=== PATIENT | male | born 1965 | race Caucasian/White ===

== ENCOUNTER 2017-05-24 13:49 | Emergency (ER) | payer OTHER, MEDICARE, BC ==
[2017-05-24 14:16] VITALS: BP 137/84
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
== END 2017-05-24 16:08 | disposition home or self-care (01) ==
LOC: MW.ED 13:49
DX: R51 Headache (principal); Z98.49 Cataract extraction status, unspecified eye; V43.92XA Unspecified car occupant injured in collision with other type car in traffic accident, initial encounter
CPT/HCPCS: 70450; 70450-26; 99283; 99283-25

== ENCOUNTER 2018-12-07 17:08 | Emergency (ER) | payer MEDICARE, BC ==
[2018-12-07] MEDS ORDERED: Sodium Chloride 0.9% 10 ML Syringe FLUSH PRN (17:22)
[2018-12-07] MEDS ORDERED: Sodium Chloride 0.9% 2.5 ML Syringe FLUSH PRN (17:22)
[2018-12-07] MEDS ORDERED: Sodium Chloride 0.9% 1,000 ML IV ONE (17:23)
[2018-12-07] MEDS ORDERED: Ondansetron 4 MG/2 ML SDV IVPUSH ONE (17:23)
[2018-12-07] MEDS ORDERED: Ketorolac 30 MG/ML SDV IVPUSH ONE (17:31)
[2018-12-07 17:55] LABS: CHLORIDE,CL 107 mmol/L (98-107); SODIUM,NA 143 mmol/L (136-148)
--- NOTE | 2018-12-07 17:55 | EDM.PDOC ---
ED HPI GENERAL MEDICAL PROBLEM - General Chief Complaint: Abdominal Pain Stated Complaint: BACK PAIN Time Seen by Provider: 12/07/18 17:27 Source of Information: Reports: Patient History Limitations: Reports: No Limitations - History of Present Illness INITIAL COMMENTS - FREE TEXT/NARRATIVE: History of present illness: []Patient complains of pain of the right lower quadrant of his abdomen with dizziness and nausea. He denies any vomiting, fevers, chills, headache, fevers or chills, diarrhea or bloody stools Review of systems: As per history of present illness and below otherwise all systems reviewed and negative. Past medical history: As per history of present illness and as reviewed below otherwise noncontributory. Surgical history: As per history of present illness and as reviewed below otherwise noncontributory. Social history: No reported history of drug or alcohol abuse. Family history: As per history of present illness and as reviewed below otherwise noncontributory. Physical exam: General: Well developed, well nourished in NAD HEENT: Atraumatic, normocephalic, pupils reactive, negative for conjunctival pallor or scleral icterus, mucous membranes moist, throat clear, neck supple, nontender, trachea midline. Lungs: Clear to auscultation, breath sounds equal bilaterally, chest nontender. Heart: S1S2, regular, negative for clicks, rubs, or JVD. Abdomen: NABS, Soft, nondistended, tender right lower quadrant without rebound or guarding. Negative for masses or hepatosplenomegaly. Negative for costovertebral tenderness. Pelvis: Stable nontender. Genitourinary: Deferred. Rectal: Deferred. Extremities: Atraumatic, negative for cords or calf pain. Neurovascular unremarkable. Neuro: Awake, alert, oriented. Cranial nerves II through XII unremarkable. Cerebellum unremarkable. Motor and sensory unremarkable throughout. Exam nonfocal. Skin:warm and dry Diagnostics: CBC, chemistry, UA, CT abdomen and pelvis Therapeutics: IV hydration, Zofran and Toradol ED Course: Improved Impression: Abdominal pain Prescriptions: None Plan: Return to ER if symptoms worsen or change. Definitive disposition and diagnosis as appropriate pending reevaluation and review of above. Right Abdomen Pain Score (Numeric/FACES): 4 - Related Data Allergies Allergy/AdvReac Type Severity Reaction Status Date / Time No Known Allergies Allergy Verified 12/07/18 17:26 Home Meds: Home Meds . [No Known Home Meds] 12/07/18 [History] Past Medical History - Past Health History Medical/Surgical History: Denies Medical/Surgical History HEENT History: Reports: Hard of Hearing Other HEENT History: Bilateral HEaring Aides. Eye surgery in past for retina detachment. Other Gastrointestinal History: Celiac Disease history. Constipation history. Genitourinary History: Reports: UTI, Recurrent Musculoskeletal History: Reports: Fracture Psychiatric History: Reports: Anxiety, Panic Attack Other Psychiatric History: "nervous breakdown" - Infectious Disease History Infectious Disease History: Reports: Chicken Pox, Measles, Mumps - Past Surgical History HEENT Surgical History: Reports: Cataract Surgery Social & Family History - Family History Family Medical History: Noncontributory - Tobacco Use Smoking Status *Q: Never Smoker - Caffeine Use Caffeine Use: Reports: Soda Caffeine Use Comment: "sometimes" - Recreational Drug Use Recreational Drug Use: No ED ROS GENERAL - Review of Systems Review Of Systems: ROS reveals no pertinent complaints other than HPI. ED EXAM, GI/ABD - Physical Exam Exam: See Below (The history of present illness) Course - Vital Signs Last Recorded V/S: Last Vital Signs Temp 95.7 F 12/07/18 17:21 Pulse 86 12/07/18 19:30 Resp 20 12/07/18 17:21 BP 146/75 H 12/07/18 19:30 Pulse Ox 97 12/07/18 19:30 - Orders/Labs/Meds Orders: Active Orders 24 hr Category Date Time Status EKG Documentation Completion [RC] STAT Care 12/07/18 17:22 Active Saline Lock Insert [OM.PC] Stat Oth 12/07/18 17:22 Ordered Labs: Laboratory Tests 12/07/18 12/07/18 12/07/18 Range/Units 17:21 17:21 17:25 WBC 6.15 (4.0-11.0) K/uL RBC 4.61 (4.50-5.90) M/uL Hgb 14.2 (13.0-17.0) g/dL Hct 39.8 (38.0-50.0) % MCV 86.3 (80.0-98.0) fL MCH 30.8 (27.0-32.0) pg MCHC 35.7 (31.0-37.0) g/dL RDW Std Deviation 43.8 (28.0-62.0) fl RDW Coeff of Ruiz 14 (11.0-15.0) % Plt Count 282 (150-400) K/uL MPV 8.60 (7.40-12.00) fL Neut % (Auto) 61.3 (48.0-80.0) % Lymph % (Auto) 23.9 (16.0-40.0) % Reagan % (Auto) 11.9 (0.0-15.0) % Eos % (Auto) 2.4 (0.0-7.0) % Baso % (Auto) 0.5 (0.0-1.5) % Neut # (Auto) 3.8 (1.4-5.7) K/uL Lymph # (Auto) 1.5 (0.6-2.4) K/uL Reagan # (Auto) 0.7 (0.0-0.8) K/uL Eos # (Auto) 0.2 (0.0-0.7) K/uL Baso # (Auto) 0.0 (0.0-0.1) K/uL Nucleated RBC % 0.0 /100WBC Nucleated RBCs # 0 K/uL Sodium 143 (136-148) mmol/L Potassium 3.8 (3.5-5.1) mmol/L Chloride 107 (98-107) mmol/L Carbon Dioxide 22.3 (21.0-32.0) mmol/L BUN 11 (7.0-18.0) mg/dL Creatinine 1.0 (0.8-1.3) mg/dL Est Cr Clr Drug Dosing 76.68 mL/min Estimated GFR (MDRD) > 60.0 ml/min Glucose 144 H (74-106) mg/dL Calcium 8.7 (8.5-10.1) mg/dL Total Bilirubin 0.2 (0.2-1.0) mg/dL AST 24 (15-37) IU/L ALT 48 (14-63) IU/L Alkaline Phosphatase 104 (46-116) U/L Total Protein 7.3 (6.4-8.2) g/dL Albumin 3.9 (3.4-5.0) g/dL Globulin 3.4 (2.6-4.0) g/dL Albumin/Globulin Ratio 1.1 (0.9-1.6) Lipase 59 L (73-393) U/L Urine Color YELLOW Urine Appearance CLEAR Urine pH 6.0 (5.0-8.0) Ur Specific [place] 1.010 (1.001-1.035) Urine Protein NEGATIVE (NEGATIVE) mg/dL Urine Glucose (UA) NEGATIVE (NEGATIVE) mg/dL Urine Ketones NEGATIVE (NEGATIVE) mg/dL Urine Occult Blood NEGATIVE (NEGATIVE) Urine Nitrite NEGATIVE (NEGATIVE) Urine Bilirubin NEGATIVE (NEGATIVE) Urine Urobilinogen 0.2 (<2.0) EU/dL Ur Leukocyte Esterase NEGATIVE (NEGATIVE) Urine RBC 0-1 (0-2/HPF) Urine WBC 0-1 (0-5/HPF) Ur Epithelial Cells RARE (NONE-FEW) Urine Bacteria RARE (NEGATIVE) Meds: Medications Discontinued Medications Generic Name Dose Route Start Last Admin Trade Name Freq PRN Reason Stop Dose Admin Sodium Chloride 1,000 mls @ 999 mls/hr 12/07/18 17:23 12/07/18 17:30 Normal Saline IV 12/07/18 18:23 999 mls/hr .Bolus ONE Administration Iopamidol 85 ml 12/07/18 18:44 12/07/18 18:45 Isovue Multipack-370 (76%) IVPUSH 12/07/18 18:45 85 ml ONETIME STA Administration Ketorolac Tromethamine 30 mg 12/07/18 17:31 12/07/18 17:37 Toradol IVPUSH 12/07/18 17:32 30 mg ONETIME ONE Administration Ondansetron HCl 4 mg 12/07/18 17:23 12/07/18 17:30 Zofran IVPUSH 12/07/18 17:24 4 mg ONETIME ONE Administration Sodium Chloride 10 ml 12/07/18 17:22 12/07/18 17:30 Saline Flush FLUSH 10 ml ASDIRECTED PRN Administration Keep Vein Open Sodium Chloride 2.5 ml 12/07/18 17:22 12/07/18 17:30 Saline Flush FLUSH 2.5 ml ASDIRECTED PRN Administration Keep Vein Open Departure - Departure Time of Disposition: 19:21 Disposition: Home, Self-Care 01 Condition: Good Clinical Impression: Abdominal pain Qualifiers: Abdominal location: right lower quadrant Qualified Code(s): R10.31 - Right lower quadrant pain - Discharge Information *PRESCRIPTION DRUG MONITORING PROGRAM REVIEWED*: No *COPY OF PRESCRIPTION DRUG MONITORING REPORT IN PATIENT SAGAR: No Instructions: Abdominal Pain, Adult Referrals: PCP,Unknown [Primary Care Provider] - Forms: ED Department Discharge Additional Instructions: The following information is given to patients seen in the emergency department who are being discharged to home. This information is to outline your options for follow-up care. We provide all patients seen in our emergency department with a follow-up referral. The need for follow-up, as well as the timing and circumstances, are variable depending upon the specifics of your emergency department visit. If you don't have a primary care physician on staff, we will provide you with a referral. We always advise you to contact your personal physician following an emergency department visit to inform them of the circumstance of the visit and for follow-up with them and/or the need for any referrals to a consulting specialist. The emergency department will also refer you to a specialist when appropriate. This referral assures that you have the opportunity for follow-up care with a specialist. All of these measure are taken in an effort to provide you with optimal care, which includes your follow-up. Under all circumstances we always encourage you to contact your private physician who remains a resource for coordinating your care. When calling for follow-up care, please make the office aware that this follow-up is from your recent emergency room visit. If for any reason you are refused follow-up, please contact the [facility] Emergency Department at and asked to speak to the emergency department charge nurse. Return to ER if symptoms worsen or change, follow with primary care if needed, [facility] [address] [place] [id number] - My Orders Last 24 Hours: My Active Orders 12/07/18 17:22 EKG Documentation Completion [RC] STAT Saline Lock Insert [OM.PC] Stat - Assessment/Plan Last 24 Hours: My Active Orders 12/07/18 17:22 EKG Documentation Completion [RC] STAT Saline Lock Insert [OM.PC] Stat
[2018-12-07] MEDS ORDERED: Iopamidol 755 MG/ML 500 ML Multipack Bottle IVPUSH STA (18:44)
--- NOTE | 2018-12-07 19:18 | CT ---
INDICATION: Right lower quadrant pain for the past month. Nausea. COMPARISON: Previous CT of the abdomen and pelvis without contrast from 07/07/2015 TECHNIQUE: CT examination of the abdomen and pelvis was performed with the uneventful intravenous administration of 85 cc of Isovue 370 while 3 mm thick axial sections were obtained from the lung bases through the pubic symphysis. Oral contrast was not administered. Please note that all CT scans at this facility use dose modulation, iterative reconstruction, and/or weight-based dosing when appropriate to reduce radiation dose to as low as reasonably achievable. FINDINGS: In the abdomen, the liver, spleen, and adrenals are normal in appearance. The pancreas is again seen to be very atrophic. There is an 8 millimeter cyst in the upper pole of the right kidney, faintly seen on the previous study and probably unchanged. The previously seen tiny calculus in the lower pole of the right kidney has increased in size and now measures 3 millimeters in length. There is no sign of any additional abnormality of the kidneys. There is no sign of left renal calculus or mass. There is no sign of hydronephrosis, hydroureter, or ureterolithiasis. The gallbladder is normal in appearance. The abdominal aorta is normal in caliber with no sign of dilatation. There is no sign of retroperitoneal mass or adenopathy. The stomach, loops of small bowel, and colon in the abdomen are normal in appearance. In the pelvis, the appendix is normal in appearance with no sign of inflammatory process. The loops of small bowel and colon in the pelvis are normal in appearance. The prostate remains normal in appearance. The urinary bladder is normal in appearance. There is no sign of pelvic or inguinal mass or adenopathy. The lung bases are clear. The osseous structures are normal in appearance for the patient`s age. IMPRESSION: Nothing seen to explain the patient`s right lower quadrant pain. Normal appearance of the appendix. Normal appearance of the right ureter and right renal collecting system with no sign of hydronephrosis. CT of the abdomen shows an increase in size of the small nonobstructive calculus in the lower pole of the right kidney, now measuring 3 millimeters in diameter. No sign of any renal calculus on the left. Normal CT of the pelvis with contrast. Please note that all CT scans at this facility use dose modulation, iterative reconstruction, and/or weight-based dosing when appropriate to reduce radiation dose to as low as reasonably achievable. Dictated by Jesus Mullins MD @ Dec 07 2018 7:08PM Signed by Dr. Jesus Mullins @ Dec 07 2018 7:17PM
[2018-12-07 19:30] VITALS: BP 146/75
== END 2018-12-07 19:31 | disposition home or self-care (01) ==
LOC: MW.ED 17:08
DX: R10.31 Right lower quadrant pain (principal); R11.0 Nausea; Z98.49 Cataract extraction status, unspecified eye
CPT/HCPCS: 36415; 74177; 80053; 81001; 83690; 85025; 93005; 96361; 96374; 96375; 99284; J1885; J2405; J7040; Q9967

== ENCOUNTER 2019-11-05 13:59 | Emergency (ER) | payer MEDICARE, BC ==
--- NOTE | 2019-11-05 14:25 | EDM.PDOC ---
ED HPI GENERAL MEDICAL PROBLEM - General Chief Complaint: Genitourinary Problem Stated Complaint: BLADDER INFECTION Time Seen by Provider: 11/05/19 14:21 Source of Information: Reports: Patient History Limitations: Reports: No Limitations - History of Present Illness INITIAL COMMENTS - FREE TEXT/NARRATIVE: HISTORY AND PHYSICAL: History of present illness: Patient is a 54-year-old male who presents to the emergency room with complaints of right lower quadrant pain that radiates into his back. He does complain of some dysuria which he describes as difficulty fully emptying his bladder and some burning with urination. Patient denies any fever, chills, headache, change in vision, syncope or near syncope. Denies any chest pain, back pain, shortness of breath or cough. Denies any nausea, vomiting, diarrhea, constipation. Has not noted any blood in urine or stool. Patient has been eating and drinking appropriately. Review of systems: As per history of present illness and below otherwise all systems reviewed and negative. Past medical history: As per history of present illness and as reviewed below otherwise noncontributory. Surgical history: As per history of present illness and as reviewed below otherwise noncontributory. Social history: See social history for further information Family history: As per history of present illness and as reviewed below otherwise noncontributory. Physical exam: General: Well-developed and well-nourished 54-year-old male. Alert and oriented. Nontoxic-appearing and in no acute distress. HEENT: Atraumatic, normocephalic, pupils equal and reactive bilaterally, negative for conjunctival pallor or scleral icterus, mucous membranes moist, TMs normal bilaterally, throat clear, neck supple, nontender, trachea midline. No drooling or trismus noted. No meningeal signs. No hot potato voice noted. Lungs: Clear to auscultation, breath sounds equal bilaterally, chest nontender. Heart: S1S2, regular rate and rhythm without overt murmur Abdomen: Soft, nondistended, diffuse right lower quadrant tenderness. Negative for masses or hepatosplenomegaly. Negative for costovertebral tenderness. Pelvis: Stable nontender. Skin: Intact, warm, dry. No lesions or rashes noted. Extremities: Atraumatic, moves all extremities per self without difficulty or deficits, negative for cords or calf pain. Neurovascular unremarkable. Neuro: Awake, alert, oriented. Cranial nerves II through XII unremarkable. Cerebellum unremarkable. Motor and sensory unremarkable throughout. Exam nonfocal. Notes: Serum lab work is unremarkable. Patient does have a UTI, culture added. 3.6mm vacation located in the distal right ureter proximal to the UVJ about 5 cm. There is no significant urethral dilatation is seen in either representing a nonobstructing or partially obstructing stone. Dr Rangel, urology emergency response officer, was consulted on this case. He states that the patient can follow-up with him on Thursday. All this information was shared and thoroughly explained with the patient. Supportive care measures were reviewed and discussed. Voices understanding and is agreeable to plan of care. Denies any further questions or concerns at this time. Diagnostics: CBC, CMP, UA, CT abd/pelvis Therapeutics: IV fluids, Toradol, Rocephin, Flomax Prescription: Flomax, Cipro Impression: UTI Kidney Stone, right Plan: 1. Increase your oral fluids. Take the medications as we discussed. 2. Tylenol and or ibuprofen as needed for pain. 3. Please follow up with Dr. Morrison, the urologist next. Return to the ED as needed as discussed. Definitive disposition and diagnosis as appropriate pending reevaluation and review of above. RLQ Pain Score (Numeric/FACES): 7 - Related Data Allergies Allergy/AdvReac Type Severity Reaction Status Date / Time No Known Allergies Allergy Verified 12/07/18 17:26 Home Meds: Home Meds Ciprofloxacin [Ciprofloxacin HCl] 500 mg PO BID 7 Days #14 tab 11/05/19 [Rx] Tamsulosin HCl [Flomax] 0.4 mg PO DAILY 7 Days #7 cap.er.24h 11/05/19 [Rx] Past Medical History - Past Health History Medical/Surgical History: Denies Medical/Surgical History HEENT History: Reports: Hard of Hearing Other HEENT History: Bilateral HEaring Aides. Eye surgery in past for retina detachment. Other Gastrointestinal History: Celiac Disease history. Constipation history. Genitourinary History: Reports: UTI, Recurrent Musculoskeletal History: Reports: Fracture Psychiatric History: Reports: Anxiety, Panic Attack Other Psychiatric History: "nervous breakdown" - Infectious Disease History Infectious Disease History: Reports: Chicken Pox, Measles, Mumps - Past Surgical History HEENT Surgical History: Reports: Cataract Surgery Social & Family History - Family History Family Medical History: Noncontributory - Caffeine Use Caffeine Use: Reports: Soda Caffeine Use Comment: "sometimes" ED ROS GENERAL - Review of Systems Review Of Systems: Comprehensive ROS is negative, except as noted in HPI. ED EXAM, RENAL/ - Physical Exam Exam: See Below (See dictation) Course - Vital Signs Last Recorded V/S: Last Vital Signs Temp 97 F 11/05/19 14:36 Pulse 87 11/05/19 16:04 Resp 18 11/05/19 16:04 BP 167/96 H 11/05/19 16:04 Pulse Ox 98 11/05/19 16:04 - Orders/Labs/Meds Orders: Active Orders 24 hr Category Date Time Status CULTURE URINE [RM] Stat Lab 11/05/19 14:40 Received Labs: Laboratory Tests 11/05/19 11/05/19 11/05/19 Range/Units 14:40 15:16 15:16 WBC 5.55 (4.0-11.0) K/uL RBC 4.70 (4.50-5.90) M/uL Hgb 14.3 (13.0-17.0) g/dL Hct 41.3 (38.0-50.0) % MCV 87.9 (80.0-98.0) fL MCH 30.4 (27.0-32.0) pg MCHC 34.6 (31.0-37.0) g/dL RDW Std Deviation 43.6 (28.0-62.0) fl RDW Coeff of Ruiz 14 (11.0-15.0) % Plt Count 287 (150-400) K/uL MPV 8.70 (7.40-12.00) fL Neut % (Auto) 58.9 (48.0-80.0) % Lymph % (Auto) 25.9 (16.0-40.0) % Humphreys % (Auto) 12.4 (0.0-15.0) % Eos % (Auto) 2.3 (0.0-7.0) % Baso % (Auto) 0.5 (0.0-1.5) % Neut # (Auto) 3.3 (1.4-5.7) K/uL Lymph # (Auto) 1.4 (0.6-2.4) K/uL Humphreys # (Auto) 0.7 (0.0-0.8) K/uL Eos # (Auto) 0.1 (0.0-0.7) K/uL Baso # (Auto) 0.0 (0.0-0.1) K/uL Nucleated RBC % 0.0 /100WBC Nucleated RBCs # 0 K/uL Sodium 139 (136-148) mmol/L Potassium 4.1 (3.5-5.1) mmol/L Chloride 103 (98-107) mmol/L Carbon Dioxide 26.0 (21.0-32.0) mmol/L BUN 11 (7.0-18.0) mg/dL Creatinine 0.8 (0.8-1.3) mg/dL Est Cr Clr Drug Dosing 93.04 mL/min Estimated GFR (MDRD) > 60.0 ml/min Glucose 122 H (74-106) mg/dL Calcium 8.9 (8.5-10.1) mg/dL Total Bilirubin 0.2 (0.2-1.0) mg/dL AST 21 (15-37) IU/L ALT 35 (14-63) IU/L Alkaline Phosphatase 104 (46-116) U/L Total Protein 7.4 (6.4-8.2) g/dL Albumin 4.0 (3.4-5.0) g/dL Globulin 3.4 (2.6-4.0) g/dL Albumin/Globulin Ratio 1.2 (0.9-1.6) Urine Color YELLOW Urine Appearance SLT CLOUDY Urine pH 6.0 (5.0-8.0) Ur Specific Lenore 1.025 (1.001-1.035) Urine Protein NEGATIVE (NEGATIVE) mg/dL Urine Glucose (UA) NEGATIVE (NEGATIVE) mg/dL Urine Ketones NEGATIVE (NEGATIVE) mg/dL Urine Occult Blood NEGATIVE (NEGATIVE) Urine Nitrite NEGATIVE (NEGATIVE) Urine Bilirubin NEGATIVE (NEGATIVE) Urine Urobilinogen 0.2 (<2.0) EU/dL Ur Leukocyte Esterase MODERATE H (NEGATIVE) Urine RBC 2-6 (0-2/HPF) Urine WBC 30-50 (0-5/HPF) Ur Epithelial Cells FEW (NONE-FEW) Urine Bacteria 2+ H (NEGATIVE) Meds: Medications Discontinued Medications Generic Name Dose Route Start Last Admin Trade Name Freq PRN Reason Stop Dose Admin Sodium Chloride 1,000 mls @ 999 mls/hr 11/05/19 14:46 11/05/19 15:19 Normal Saline IV 11/05/19 15:46 999 mls/hr STAT ONE Administration Ceftriaxone Sodium/Dextrose 1 50 mls @ 100 mls/hr 11/05/19 15:21 11/05/19 16: 03 gm/ Premix IV 11/05/19 15:50 100 mls/hr ONETIME ONE Administration Ketorolac Tromethamine 30 mg 11/05/19 14:46 11/05/19 15:20 Toradol IVPUSH 11/05/19 14:47 30 mg ONETIME ONE Administration Tamsulosin HCl 0.4 mg 11/05/19 16:55 Flomax PO 11/05/19 16:56 ONETIME ONE Departure - Departure Time of Disposition: 17:03 Disposition: Home, Self-Care 01 Clinical Impression: UTI, Urinary tract infectious disease, Kidney stone - Discharge Information Prescriptions: Ciprofloxacin [Ciprofloxacin HCl] 500 mg PO BID 7 Days #14 tab Tamsulosin HCl [Flomax] 0.4 mg PO DAILY 7 Days #7 cap.er.24h Instructions: Kidney Stones, Pvkm-to-Uadw, Urinary Tract Infection, Adult, Easy -to-Read Referrals: PCP,None [Primary Care Provider] - Forms: ED Department Discharge Additional Instructions: The following information is given to patients seen in the emergency department who are being discharged to home. This information is to outline your options for follow-up care. We provide all patients seen in our emergency department with a follow-up referral. The need for follow-up, as well as the timing and circumstances, are variable depending upon the specifics of your emergency department visit. If you don't have a primary care physician on staff, we will provide you with a referral. We always advise you to contact your personal physician following an emergency department visit to inform them of the circumstance of the visit and for follow-up with them and/or the need for any referrals to a consulting specialist. The emergency department will also refer you to a specialist when appropriate. This referral assures that you have the opportunity for follow-up care with a specialist. All of these measure are taken in an effort to provide you with optimal care, which includes your follow-up. Under all circumstances we always encourage you to contact your private physician who remains a resource for coordinating your care. When calling for follow-up care, please make the office aware that this follow-up is from your recent emergency room visit. If for any reason you are refused follow-up, please contact the [facility] Emergency Department at and asked to speak to the emergency department charge nurse. [facility] - Urology [address] [place] [id number] 1. Increase your oral fluids. Take the medications as we discussed. 2. Tylenol and or ibuprofen as needed for pain. 3. Please follow up with Dr. Morrison, the urologist next. Return to the ED as needed as discussed. Sepsis Event Note - Focused Exam Vital Signs: Vital Signs Temp Pulse Resp BP Pulse Ox 11/05/19 16:04 87 18 167/96 H 98 11/05/19 14:36 97 F 98 16 118/87 96 Date Exam was Performed: 11/05/19 Time Exam was Performed: 17:11 - My Orders Last 24 Hours: My Active Orders 11/05/19 14:40 CULTURE URINE [RM] Stat - Assessment/Plan Last 24 Hours: My Active Orders 11/05/19 14:40 CULTURE URINE [RM] Stat
[2019-11-05] MEDS ORDERED: Ketorolac 30 MG/ML SDV IVPUSH ONE (14:46)
[2019-11-05] MEDS ORDERED: Sodium Chloride 0.9% 1,000 ML IV ONE (14:46)
[2019-11-05] MEDS ORDERED: cefTRIAXone 1 GM in Premix Bag 1 BAG IV ONE (15:21)
[2019-11-05 15:41] LABS: BLOOD UREA NITROGEN,BUN 11 mg/dL (7.0-18.0); CHLORIDE,CL 103 mmol/L (98-107); GLUCOSE RANDOM 122 mg/dL (74-106); POTASSIUM,K 4.1 mmol/L (3.5-5.1); SODIUM,NA 139 mmol/L (136-148)
[2019-11-05 16:05] VITALS: PULSE 87
--- NOTE | 2019-11-05 16:50 | CT ---
CT abdomen and pelvis Technique: Multiple axial sections were obtained from above the dome of the diaphragm inferiorly through the pubic symphysis. Intravenous and oral contrast not utilized. Study has been performed as a ureteral stone protocol. Comparison: Prior CT abdomen and pelvis study of 12/07/18. Findings: Very small calcification within the lower left kidney is seen compatible with small nonobstructing stone. No other abnormal calcifications are seen within the kidneys. Calcification is noted within the lower right pelvis which appears to be within the right ureter measuring about 3.6 mm in size. No significant dilatation of the collecting system is seen i and n this is felt to represent partially or nonobstructing stone. No other abnormal calcifications are seen. Visualized lung bases show nothing acute. Noncontrast appearance of the liver shows no focal parenchymal abnormality. Spleen appears within normal limits. Adrenal glands show no nodule. Pancreas shows atrophy. No focal abnormality appreciated within the pancreas. Gallbladder contains no calcified gallstones. Aorta shows atherosclerotic calcification without aneurysm. No retroperitoneal adenopathy or mesenteric abnormalities are seen. No pelvic mass or adenopathy is seen. Calcifications are noted within the prostate gland. Appendix is seen which is normal in size. Bone window settings were reviewed which appear within normal limits for the patient's age. Impression: 1. 3.6 mm calcification believed to be located within the distal right ureter proximal to the UVJ by about 5 cm. No significant ureteral dilatation is seen in this either represents nonobstructing or partially obstructing stone. 2. Very small calcification compatible with nonobstructing stone within the lower left kidney. 3. No additional acute abnormality is appreciated on noncontrast CT study of the abdomen and pelvis. Diagnostic code #3 This report was dictated in [place] Standard Time
[2019-11-05] MEDS ORDERED: Tamsulosin 0.4 MG Cap.ER PO ONE (16:55)
[2019-11-05 17:22] VITALS: BP 151/93
== END 2019-11-05 17:22 | disposition home or self-care (01) ==
LOC: MW.ED 13:59
DX: N39.0 Urinary tract infection, site not specified (principal); N20.2 Calculus of kidney with calculus of ureter; Z79.899 Other long term (current) drug therapy
CPT/HCPCS: 36415; 74176; 80053; 81001; 85025; 87086; 87088; 87186; 96361; 96365; 96375; 99284; A9270; J0696; J1885; J7030

== ENCOUNTER 2019-12-02 17:23 | Observation (INO) | payer MEDICARE, BC ==
[2019-12-02] MEDS ORDERED: fentaNYL 50 MCG/ML SDV IVPUSH ONE (17:30)
[2019-12-02] MEDS ORDERED: Iopamidol 755 MG/ML 500 ML Multipack Bottle IVPUSH STA (17:53)
--- NOTE | 2019-12-02 18:00 | CT ---
CT cervical spine Technique: Multiple axial sections were obtained from above C1 inferiorly to the bottom of T2. Reconstructed sagittal and coronal images were reviewed. Findings: Vertebral body heights and disc spaces are fairly well-preserved. No bony central or bony neural foraminal stenosis is seen. No fracture is appreciated within the cervical spine. No abnormal subluxation is appreciated. Impression: 1. Nothing acute is appreciated on CT study of the cervical spine. Diagnostic code #1 This report was dictated in [place] Standard Time
--- NOTE | 2019-12-02 18:03 | CT ---
Head CT Technique: Multiple axial sections through the brain were obtained. Intravenous contrast was not utilized. Comparison: Prior CT cervical spine study of 05/24/17. Findings: Ventricles along with basal cisterns and sulci over the convexities are mildly prominent. Symmetric low density areas are noted within the globus pallidus on both sides which is stable. Mild areas of diminished density are noted within the periventricular and subcortical white matter. These findings are also stable from prior exam presumably due to nonspecific small vessel white matter change. No acute abnormal parenchymal density is seen. No evidence of intracranial hemorrhage. No midline shift or mass-effect is seen. Bone window settings were reviewed which shows no acute calvarial abnormality. Mastoid sinuses show nothing acute. Paranasal sinuses show nothing acute. Impression: 1. Stable findings as described above. 2. No acute intracranial abnormality is identified. Diagnostic code #2 This report was dictated in [place] Standard Time
--- NOTE | 2019-12-02 18:03 | CR ---
Chest: Portable view of the chest was obtained. Comparison: No prior chest imaging. Findings: Heart size and mediastinum are normal. Lungs are clear with no acute parenchymal change. Slightly displaced fractures are noted within the 7th and 8th right ribs. Other bony structures are grossly intact. Impression: 1. 2 slightly displaced right lower rib fractures. 2. Nothing acute is otherwise seen on portable chest x-ray. Diagnostic code #3 This report was dictated in [place] Standard Time
[2019-12-02 18:10] LABS: BLOOD UREA NITROGEN,BUN 15 mg/dL (7.0-18.0); CARBON DIOXIDE,CO2 23.2 mmol/L (21.0-32.0); CHLORIDE,CL 103 mmol/L (98-107); GLUCOSE RANDOM 211 mg/dL (74-106); POTASSIUM,K 4.8 mmol/L (3.5-5.1); SODIUM,NA 142 mmol/L (136-148)
--- NOTE | 2019-12-02 18:13 | CT ---
CT thoracic spine Technique: Multiple axial sections through the thoracic spine were obtained. Reconstructed coronal and sagittal images were reviewed. Findings: Fracture is seen within the posterior right 8th rib. Mild scattered endplate osteophytes are seen within the thoracic spine. Vertebral body heights and disc spaces within the thoracic spine are maintained. No vertebral body fracture or posterior fracture is appreciated. No bony central or bony neural foraminal stenosis. Impression: 1. Slight endplate spurring. 2. Fracture within the right posterior 8th rib. 3. Nothing acute is seen within the thoracic spine. Diagnostic code #3 This report was dictated in [place] Standard Time
--- NOTE | 2019-12-02 18:17 | CT ---
CT abdomen and pelvis Technique: Multiple axial sections were obtained from above the dome of the diaphragm inferiorly through the pubic symphysis. Intravenous contrast was utilized. No oral contrast has been given. Findings: Liver contains no focal abnormality. Spleen appears within normal limits. Adrenal glands show no nodule. Small cortical lesions are seen within both kidneys most likely representing minimal cysts. Pancreas is within normal limits. Aorta shows no aneurysm. No retroperitoneal adenopathy is seen. Appendix is seen and appears to be normal in size. No pelvic mass or adenopathy is seen. Several small bladder diverticulum are seen. Prostate calcifications are noted. Prostate gland is mildly enlarged. No free fluid or inflammatory change is seen. Several slightly prominent small bowel loops are seen within the upper abdomen showing possible bowel wall thickening. Difficult to exclude pre-existing enteritis versus bowel wall edema/hemorrhage from trauma. Bone window settings were reviewed which shows no discrete fracture within the visualized lumbar spine. No discrete pelvic fracture or hip fracture is seen. Impression: 1. Bowel wall thickening with slightly prominent small bowel within the upper abdomen. Findings may represent pre-existing enteritis or represent bowel injury from recent trauma. 2. No free fluid is seen. 3. Other nonacute findings as noted above.. Diagnostic code #3 This report was dictated in [place] Standard Time
--- NOTE | 2019-12-02 18:23 | CT ---
CT chest Technique: Multiple axial sections were obtained from above the lung apices inferiorly through the lung bases. Intravenous contrast was utilized. Comparison: No prior chest CT. Findings: Aorta shows no aneurysm. Atherosclerotic calcification is seen. No pericardial thickening is seen. No mediastinal adenopathy is seen. No axillary adenopathy is seen. Lungs show mild dependent atelectasis posteriorly within both lungs. Lungs otherwise show no acute parenchymal change. No discrete pulmonary contusion is seen. No pleural effusions or pneumothorax is seen. Fractures are noted within the posterior 9th and 10th ribs. This was incorrectly thought to be the 8th rib on CT thoracic spine and the 7th and 8th ribs on chest x-ray. No additional rib fracture is seen. Impression: 1. Fractures within the posterior 9th and 10th ribs. Please note that these rib fractures were incorrectly labeled as regarding level on previous chest x-ray and thoracic spine CT. 2. Mild dependent atelectasis. 3. No other acute finding is seen on CT study of the chest. Diagnostic code #3 This report was dictated in [place] Standard Time
--- NOTE | 2019-12-02 18:26 | CT ---
CT lumbar spine Technique: Multiple axial sections through the lumbar spine were obtained. Reconstructed coronal and sagittal images were obtained. Comparison: No prior lumbar spine imaging. Findings: Vertebral body heights and disc spaces are maintained. Fractures are seen within lateral 7th and 8th right ribs. This is in addition to the fractures seen on chest CT within the posterior 9th and 10th right ribs. No fracture is seen within the lumbar spine. Mild degenerative apophyseal change is seen. No abnormal subluxation is seen. No traumatic disc herniation is seen. Impression: 1. Slight degenerative change. 2. Rib fractures as described above. 3. Nothing acute is seen within the lumbar spine. Diagnostic code #3 This report was dictated in [place] Standard Time
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
[2019-12-02] MEDS ORDERED: HYDROmorphone 2 MG/ML Syringe IVPUSH PRN (19:24)
[2019-12-02] MEDS ORDERED: Sodium Chloride 0.9% 2.5 ML Syringe FLUSH PRN (19:24)
[2019-12-02] MEDS ORDERED: Acetaminophen/HYDROcodone 325-5 MG Tab PO PRN (19:24)
[2019-12-02] MEDS ORDERED: Sodium Chloride 0.9% 10 ML Syringe FLUSH PRN (19:24)
[2019-12-02] MEDS ORDERED: Sodium Chloride 0.9% 10 ML SDV IV PRN (19:24)
[2019-12-02] MEDS: Ketorolac 15 MG/ML SDV IVPUSH SCH (20:15)
[2019-12-02] MEDS: Sodium Chloride 0.9% 1,000 ML IV SCH (20:23)
[2019-12-03] MEDS: Ketorolac 15 MG/ML SDV IVPUSH SCH ×2 (01:45→07:19)
[2019-12-03] MEDS: Sodium Chloride 0.9% 1,000 ML IV SCH (06:38)
[2019-12-03] MEDS ORDERED: Tamsulosin 0.4 MG Cap.ER PO SCH (08:30)
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
[2019-12-03] MEDS ORDERED: Ketorolac 10 MG Tab PO SCH (10:15)
[2019-12-03 12:07] VITALS: BP 127/76; PULSE 82
== END 2019-12-03 11:15 | disposition home or self-care (01) ==
LOC: MW.ED 17:23 → MW.MS 19:08
PROVIDERS: ADMIT Surgery; ATTEND Surgery
DX: S22.41XA Multiple fractures of ribs, right side, initial encounter for closed fracture (principal); Z79.899 Other long term (current) drug therapy; V59.49XA Driver of pick-up truck or van injured in collision with other motor vehicles in traffic accident, initial encounter
CPT/HCPCS: 36415; 70450; 71045; 71260; 72125; 72128; 72131; 74177; 80048; 80307; 85025; 85610; A9270; J1170; J1885; J3010; J7030; Q9967; 96374; 99284; 99285-25

== ENCOUNTER 2023-04-10 10:56 | Emergency (ER) | payer OTHER, MEDICARE, BC ==
[2023-04-10 13:48] VITALS: BP 131/74; PULSE 79
== END 2023-04-10 13:47 | disposition home or self-care (01) ==
LOC: MW.ED 10:56
DX: G44.319 Acute post-traumatic headache, not intractable (principal); V49.49XA Driver injured in collision with other motor vehicles in traffic accident, initial encounter; Y92.410 Unspecified street and highway as the place of occurrence of the external cause
CPT/HCPCS: 70450; 70450-26; 72125; 72125-26; 72128; 72128-26; 99283; 99284

== ENCOUNTER 2024-05-28 14:07 | Emergency (ER) | payer MEDICARE, BC ==
[2024-05-28 15:01] LABS: APPEARANCE,URINE CLEAR; BILIRUBIN,URINE NEGATIVE (NEGATIVE); COLOR,URINE YELLOW; GLUCOSE,URINE 100 mg/dL (NEGATIVE); KETONES,URINE NEGATIVE (NEGATIVE); LEUKOCYTE ESTERASE,URINE NEGATIVE (NEGATIVE); NITRITE,URINE NEGATIVE (NEGATIVE); OCCULT BLOOD,URINE NEGATIVE (NEGATIVE); PROTEIN,URINE NEGATIVE (NEGATIVE); UROBILINOGEN,URINE 0.2 EU/dL (<2.0)
[2024-05-28 18:33] VITALS: BP 122/74; PULSE 69
== END 2024-05-28 18:04 | disposition home or self-care (01) ==
LOC: MW.ED 14:07
DX: N40.1 Benign prostatic hyperplasia with lower urinary tract symptoms (principal); Z75.8 Other problems related to medical facilities and other health care
CPT/HCPCS: 51798; 74176; 74176-26; 81003; 99282; 99284-25

== ENCOUNTER 2024-06-22 21:38 | Emergency (ER) | payer MEDICARE, BC ==
[2024-06-22] MEDS ORDERED: Sodium Chloride 0.9% 10 ML Syringe FLUSH PRN (22:04)
[2024-06-22] MEDS ORDERED: Sodium Chloride 0.9% 2.5 ML Syringe FLUSH PRN (22:04)
[2024-06-22 22:37] LABS: BASOPHILS ABSOLUTE AUTO 0.07 K/uL (0.00-0.20); EOSINOPHILS ABSOLUTE AUTO 0.21 K/uL (0.00-0.45); HEMATOCRIT 38.7 % (42.0-52.0); HEMOGLOBIN 13.4 g/dL (14.0-18.0); IMMATURE GRAN ABSOLUTE AUTO 0.02 K/uL (0.00-0.05); IMMATURE GRAN PERCENT AUTO 0.3 % (0.0-0.4); LYMPHOCYTES ABSOLUTE AUTO 2.02 K/uL (1.00-4.80); LYMPHOCYTES PERCENT AUTO 28.7 % (24.0-44.0); MEAN CORPUSCULAR HEMOGLOBIN 30.3 pg (28.0-32.0); MEAN CORPUSCULAR HGB CONC 34.6 g/dL (32.0-36.0); MEAN CORPUSCULAR VOLUME 87.6 fL (83.0-99.0); MEAN PLATELET VOLUME 8.5 fL (9.4-12.4); MONOCYTES ABSOLUTE AUTO 0.63 K/uL (0.00-0.80); MONOCYTES PERCENT AUTO 8.9 % (0.0-8.0); NEUTROPHILS PERCENT AUTO 58.1 % (41.0-71.0); PLATELET COUNT,PLT 304 K/uL (150-400); RED BLOOD CELL COUNT 4.42 M/uL (4.52-5.90); WHITE BLOOD CELL COUNT,WBC 7.05 K/uL (3.9-11.3)
[2024-06-22 23:00] VITALS: BP 146/77; PULSE 81
[2024-06-22 23:01] LABS: INR 0.96 (0.86-1.11)
[2024-06-22 23:14] LABS: A/G RATIO 1.2 (0.9-1.6); ALBUMIN 4.1 g/dL (3.4-5.0); BILIRUBIN TOTAL 0.2 mg/dL (0.2-1.0); CARBON DIOXIDE,CO2 22.6 mmol/L (21.0-32.0); CREATININE 0.9 mg/dL (0.8-1.3); EST CRCL DRUG DOSING (CG) 77.78 mL/min; POTASSIUM,K 4.1 mmol/L (3.5-5.1); PROTEIN TOTAL,TP 7.6 g/dL (6.4-8.2)
== END 2024-06-22 22:57 | disposition home or self-care (01) ==
LOC: MW.ED 21:38
DX: M79.632 Pain in left forearm (principal); R22.32 Localized swelling, mass and lump, left upper limb; Z75.8 Other problems related to medical facilities and other health care
CPT/HCPCS: 36415; 73090-26-LT; 73090-LT; 80053; 85025; 85610; 99282; 99283

== ENCOUNTER 2024-06-28 13:21 | Emergency (ER) | payer MEDICARE, BC ==
[2024-06-28 14:36] LABS: BASE EXCESS VENOUS -2.4 (-2.0-3.0); PH,VENOUS 7.4 (7.31-7.41)
[2024-06-28 14:38] LABS: BASOPHILS ABSOLUTE AUTO 0.05 K/uL (0.00-0.20); BASOPHILS PERCENT AUTO 0.7 % (0.0-1.0); EOSINOPHILS ABSOLUTE AUTO 0.17 K/uL (0.00-0.45); EOSINOPHILS PERCENT AUTO 2.2 % (0.0-6.0); HEMATOCRIT 37.8 % (42.0-52.0); HEMOGLOBIN 13.5 g/dL (14.0-18.0); IMMATURE GRAN ABSOLUTE AUTO 0.01 K/uL (0.00-0.05); IMMATURE GRAN PERCENT AUTO 0.1 % (0.0-0.4); LYMPHOCYTES ABSOLUTE AUTO 1.73 K/uL (1.00-4.80); LYMPHOCYTES PERCENT AUTO 22.6 % (24.0-44.0); MEAN CORPUSCULAR HEMOGLOBIN 30.7 pg (28.0-32.0); MEAN CORPUSCULAR HGB CONC 35.7 g/dL (32.0-36.0); MEAN CORPUSCULAR VOLUME 85.9 fL (83.0-99.0); MEAN PLATELET VOLUME 8.4 fL (9.4-12.4); MONOCYTES ABSOLUTE AUTO 0.64 K/uL (0.00-0.80); MONOCYTES PERCENT AUTO 8.4 % (0.0-8.0); NEUTROPHILS ABSOLUTE AUTO 5.04 K/uL (1.80-7.70); PLATELET COUNT,PLT 318 K/uL (150-400); WHITE BLOOD CELL COUNT,WBC 7.64 K/uL (3.9-11.3)
[2024-06-28 14:38] LABS: APPEARANCE,URINE CLEAR; BILIRUBIN,URINE NEGATIVE (NEGATIVE); COLOR,URINE YELLOW; GLUCOSE,URINE NEGATIVE (NEGATIVE); KETONES,URINE NEGATIVE (NEGATIVE); LEUKOCYTE ESTERASE,URINE NEGATIVE (NEGATIVE); NITRITE,URINE NEGATIVE (NEGATIVE); OCCULT BLOOD,URINE NEGATIVE (NEGATIVE); PROTEIN,URINE NEGATIVE (NEGATIVE); UROBILINOGEN,URINE 0.2 EU/dL (<2.0)
[2024-06-28] MEDS: Sodium Chloride 0.9% 1,000 ML IV STA (14:45)
[2024-06-28] MEDS: Ketorolac 30 MG/ML SDV IVPUSH STA (14:46)
[2024-06-28] MEDS: Ondansetron 4 MG/2 ML SDV IVPUSH STA (14:46)
[2024-06-28 14:53] LABS: INR 1.01 (0.86-1.11); PTT,PARTIAL THROMBOPLSTIN TIME 27.7 SEC (23.9-30.7)
[2024-06-28 15:01] LABS: HEMOGLOBIN A1C 8.1 %
[2024-06-28 15:03] LABS: A/G RATIO 1.3 (0.9-1.6); ALBUMIN 4.4 g/dL (3.4-5.0); BILIRUBIN TOTAL 0.3 mg/dL (0.2-1.0); CALCIUM 9.5 mg/dL (8.5-10.1); CARBON DIOXIDE,CO2 21.2 mmol/L (21.0-32.0); CREATININE 0.9 mg/dL (0.8-1.3); EST CRCL DRUG DOSING (CG) 78.77 mL/min; MAGNESIUM 1.7 mg/dL (1.8-2.4); POTASSIUM,K 4.2 mmol/L (3.5-5.1); PROTEIN TOTAL,TP 7.8 g/dL (6.4-8.2)
[2024-06-28 15:17] LABS: CORONAVIRUS COVID-19 NAA NEGATIVE (NEGATIVE); INFLUENZA A NAA NEGATIVE (NEGATIVE); INFLUENZA B NAA NEGATIVE (NEGATIVE)
[2024-06-28 15:47] VITALS: BP 138/77; PULSE 82
== END 2024-06-28 15:45 | disposition home or self-care (01) ==
LOC: MW.ED 13:21
DX: R11.2 Nausea with vomiting, unspecified (principal); G25.70 Drug induced movement disorder, unspecified; R73.09 Other abnormal glucose; E11.9 Type 2 diabetes mellitus without complications; Z75.8 Other problems related to medical facilities and other health care
CPT/HCPCS: 0240U; 36415; 80053; 81003; 82803; 82947; 83036; 83690; 83735; 84484; 85025; 85610; 85730; 93005; 99284; J7030

== ENCOUNTER 2024-07-14 09:46 | Emergency (ER) | payer MEDICARE, BC ==
[2024-07-14 10:24] LABS: BASE EXCESS VENOUS -0.2 (-2.0-3.0); BASOPHILS ABSOLUTE AUTO 0.04 K/uL (0.00-0.20); BASOPHILS PERCENT AUTO 0.6 % (0.0-1.0); EOSINOPHILS ABSOLUTE AUTO 0.13 K/uL (0.00-0.45); EOSINOPHILS PERCENT AUTO 2.1 % (0.0-6.0); HEMATOCRIT 38.4 % (42.0-52.0); HEMOGLOBIN 13.6 g/dL (14.0-18.0); IMMATURE GRAN ABSOLUTE AUTO 0.01 K/uL (0.00-0.05); IMMATURE GRAN PERCENT AUTO 0.2 % (0.0-0.4); LYMPHOCYTES ABSOLUTE AUTO 1.15 K/uL (1.00-4.80); LYMPHOCYTES PERCENT AUTO 18.6 % (24.0-44.0); MEAN CORPUSCULAR HEMOGLOBIN 30.9 pg (28.0-32.0); MEAN CORPUSCULAR HGB CONC 35.4 g/dL (32.0-36.0); MEAN CORPUSCULAR VOLUME 87.3 fL (83.0-99.0); MEAN PLATELET VOLUME 8.4 fL (9.4-12.4); MONOCYTES ABSOLUTE AUTO 0.58 K/uL (0.00-0.80); MONOCYTES PERCENT AUTO 9.4 % (0.0-8.0); NEUTROPHILS ABSOLUTE AUTO 4.27 K/uL (1.80-7.70); NEUTROPHILS PERCENT AUTO 69.1 % (41.0-71.0); PH,VENOUS 7.38 (7.31-7.41); PLATELET COUNT,PLT 282 K/uL (150-400); WHITE BLOOD CELL COUNT,WBC 6.18 K/uL (3.9-11.3)
[2024-07-14 10:56] LABS: A/G RATIO 1.1 (0.9-1.6); ALBUMIN 3.8 g/dL (3.4-5.0); BILIRUBIN TOTAL 0.3 mg/dL (0.2-1.0); CALCIUM 8.9 mg/dL (8.5-10.1); CARBON DIOXIDE,CO2 23.6 mmol/L (21.0-32.0); CREATININE 0.9 mg/dL (0.8-1.3); EST CRCL DRUG DOSING (CG) 78.77 mL/min; POTASSIUM,K 4.2 mmol/L (3.5-5.1); PROTEIN TOTAL,TP 7.2 g/dL (6.4-8.2)
[2024-07-14] MEDS: Ketorolac 30 MG/ML SDV IVPUSH ONE (11:10)
[2024-07-14] MEDS: Ondansetron 4 MG/2 ML SDV IVPUSH ONE (11:10)
[2024-07-14] MEDS: Sodium Chloride 0.9% 2.5 ML Syringe FLUSH PRN (11:13)
[2024-07-14] MEDS: Sodium Chloride 0.9% 10 ML Syringe FLUSH PRN (11:13)
[2024-07-14 14:19] VITALS: BP 118/84; PULSE 72
== END 2024-07-14 14:17 | disposition home or self-care (01) ==
LOC: MW.ED 09:46
DX: K59.00 Constipation, unspecified (principal); R41.0 Disorientation, unspecified; E11.9 Type 2 diabetes mellitus without complications; Z79.84 Long term (current) use of oral hypoglycemic drugs; Z79.899 Other long term (current) drug therapy; Z75.8 Other problems related to medical facilities and other health care
CPT/HCPCS: 36415; 70450; 74176; 80053; 82009; 82803; 82947; 83690; 84484; 85025; 93005; 96374; 96375; 99285; J1885; J2405; J3490; 93010; 99284

== ENCOUNTER 2025-01-25 15:33 | Inpatient (IN) | payer MEDICARE, BC ==
[2025-01-25] MEDS ORDERED: Sodium Chloride 0.9% 10 ML Syringe FLUSH PRN (16:13)
[2025-01-25] MEDS ORDERED: Sodium Chloride 0.9% 2.5 ML Syringe FLUSH PRN (16:13)
[2025-01-25] MEDS: Morphine 2 MG/ML SYRINGE IVPUSH ONE (18:12)
[2025-01-25] MEDS: Ondansetron 4 MG/2 ML SDV IVPUSH ONE (18:12)
[2025-01-25] MEDS: Sodium Chloride 0.9% 1,000 ML IV SCH (18:13)
[2025-01-25 18:28] LABS: BASOPHILS ABSOLUTE AUTO 0.04 K/uL (0.00-0.20); BASOPHILS PERCENT AUTO 0.3 % (0.0-1.0); EOSINOPHILS ABSOLUTE AUTO 0.07 K/uL (0.00-0.45); EOSINOPHILS PERCENT AUTO 0.6 % (0.0-6.0); HEMATOCRIT 36.8 % (42.0-52.0); IMMATURE GRAN ABSOLUTE AUTO 0.05 K/uL (0.00-0.05); IMMATURE GRAN PERCENT AUTO 0.4 % (0.0-0.4); LYMPHOCYTES ABSOLUTE AUTO 0.97 K/uL (1.00-4.80); LYMPHOCYTES PERCENT AUTO 7.8 % (24.0-44.0); MEAN CORPUSCULAR HEMOGLOBIN 31.2 pg (28.0-32.0); MEAN CORPUSCULAR HGB CONC 35.3 g/dL (32.0-36.0); MEAN CORPUSCULAR VOLUME 88.2 fL (83.0-99.0); MEAN PLATELET VOLUME 8.5 fL (9.4-12.4); MONOCYTES ABSOLUTE AUTO 0.84 K/uL (0.00-0.80); MONOCYTES PERCENT AUTO 6.8 % (0.0-8.0); NEUTROPHILS ABSOLUTE AUTO 10.46 K/uL (1.80-7.70); NEUTROPHILS PERCENT AUTO 84.1 % (41.0-71.0); PLATELET COUNT,PLT 283 K/uL (150-400); RED BLOOD CELL COUNT 4.17 M/uL (4.52-5.90); WHITE BLOOD CELL COUNT,WBC 12.43 K/uL (3.9-11.3)
[2025-01-25 19:00] LABS: A/G RATIO 1.1 (0.9-1.6); ALBUMIN 3.6 g/dL (3.4-5.0); BILIRUBIN TOTAL 0.2 mg/dL (0.2-1.0); CALCIUM 8.1 mg/dL (8.5-10.1); POTASSIUM,K 3.9 mmol/L (3.5-5.1); PROTEIN TOTAL,TP 6.8 g/dL (6.4-8.2)
[2025-01-25] MEDS ORDERED: 50% Dextrose in Water 50 ML Syringe IVPUSH PRN (22:11)
[2025-01-25] MEDS ORDERED: Glucagon,Human Recombinant 1 MG Vial IM PRN (22:11)
[2025-01-25] MEDS: Insulin Aspart 100 Units/ML 3 ML Pen SUBCUT SCH (23:36)
[2025-01-26] MEDS: Morphine 2 MG/ML SYRINGE IVPUSH PRN (00:35)
[2025-01-26] MEDS: Ondansetron 4 MG/2 ML SDV IVPUSH PRN (03:35)
[2025-01-26 06:23] LABS: BASOPHILS ABSOLUTE AUTO 0.03 K/uL (0.00-0.20); BASOPHILS PERCENT AUTO 0.4 % (0.0-1.0); EOSINOPHILS PERCENT AUTO 1.3 % (0.0-6.0); HEMATOCRIT 37.1 % (42.0-52.0); HEMOGLOBIN 12.9 g/dL (14.0-18.0); IMMATURE GRAN ABSOLUTE AUTO 0.01 K/uL (0.00-0.05); IMMATURE GRAN PERCENT AUTO 0.1 % (0.0-0.4); LYMPHOCYTES ABSOLUTE AUTO 1.12 K/uL (1.00-4.80); LYMPHOCYTES PERCENT AUTO 14.7 % (24.0-44.0); MEAN CORPUSCULAR HEMOGLOBIN 30.4 pg (28.0-32.0); MEAN CORPUSCULAR HGB CONC 34.8 g/dL (32.0-36.0); MEAN CORPUSCULAR VOLUME 87.5 fL (83.0-99.0); MEAN PLATELET VOLUME 8.3 fL (9.4-12.4); MONOCYTES ABSOLUTE AUTO 0.81 K/uL (0.00-0.80); MONOCYTES PERCENT AUTO 10.7 % (0.0-8.0); NEUTROPHILS ABSOLUTE AUTO 5.53 K/uL (1.80-7.70); NEUTROPHILS PERCENT AUTO 72.8 % (41.0-71.0); PLATELET COUNT,PLT 250 K/uL (150-400); RED BLOOD CELL COUNT 4.24 M/uL (4.52-5.90)
[2025-01-26 06:43] LABS: CALCIUM 8.1 mg/dL (8.5-10.1); CARBON DIOXIDE,CO2 24.1 mmol/L (21.0-32.0); CREATININE 0.8 mg/dL (0.8-1.3); EST CRCL DRUG DOSING (CG) 83.66 mL/min; POTASSIUM,K 3.8 mmol/L (3.5-5.1)
[2025-01-26] MEDS ORDERED: Phenylephrine HCl In 0.9% NaCl 1 MG/10 ML Syringe IVPUSH PRN (10:19)
[2025-01-26] MEDS ORDERED: fentaNYL 50 MCG/ML SDV IVPUSH PRN (10:19)
[2025-01-26] MEDS ORDERED: Naloxone 0.4 MG/ML SDV IVPUSH PRN ×2 (10:19→19:56)
[2025-01-26] MEDS ORDERED: Metoclopramide 10 MG/2 ML SDV IVPUSH PRN (10:19)
[2025-01-26] MEDS ORDERED: Ondansetron 4 MG/2 ML SDV IVPUSH PRN ×2 (10:19→19:56)
[2025-01-26] MEDS ORDERED: Albuterol 0.083% 2.5 MG/3 ML Neb Soln NEB PRN (10:19)
[2025-01-26] MEDS ORDERED: HYDROmorphone 1 MG/ML Syringe IVPUSH PRN (10:19)
[2025-01-26] MEDS ORDERED: Morphine 2 MG/ML SYRINGE IVPUSH PRN ×2 (10:19→19:56)
[2025-01-26] MEDS: Famotidine 20 MG/2 ML SDV IVPUSH ONE (10:40)
[2025-01-26] MEDS ORDERED: propofoL 1,000 MG/100 ML 200 ML ONE (12:04)
[2025-01-26] MEDS ORDERED: Ondansetron 4 MG/2 ML SDV ONE ×2 (12:47→16:04)
[2025-01-26] MEDS ORDERED: Magnesium Sulfate (4.06 MEQ/ML) 5 GM/10 ML SDV ONE (12:48)
[2025-01-26] MEDS ORDERED: Phenylephrine HCl In 0.9% NaCl 1 MG/10 ML Syringe ONE (12:48)
[2025-01-26] MEDS ORDERED: Lidocaine 2% 5 ML SDV ONE ×2 (12:55→12:59)
[2025-01-26] MEDS ORDERED: Bupivacaine 0.5% 30 ML SDV ONE ×2 (12:55→14:54)
[2025-01-26] MEDS ORDERED: fentaNYL 100 MCG/2 ML SDV ONE (12:58)
[2025-01-26] MEDS ORDERED: Rocuronium Bromide 50 MG/5 ML Syringe ONE (12:59)
[2025-01-26] MEDS ORDERED: Lidocaine 2% 11 ML Jelly Filled Syringe ONE (13:14)
[2025-01-26] MEDS ORDERED: Propofol 200 MG/20 ML SDV ONE (15:14)
[2025-01-26] MEDS ORDERED: ceFAZolin 2 GM Vial ONE (15:49)
[2025-01-26] MEDS ORDERED: Dexamethasone 4 MG/ML 5 ML MDV ONE (16:21)
[2025-01-26] MEDS ORDERED: ePHEDrine 50 MG/ML SDV ONE (16:36)
[2025-01-26] MEDS ORDERED: Ketorolac 30 MG/ML SDV ONE (16:43)
[2025-01-26] MEDS: Enoxaparin 30 MG/0.3 ML Syringe SUBCUT SCH (22:33)
[2025-01-27] MEDS: ceFAZolin 2 GM in Water For Injection, Sterile 20 ML IVPUSH SCH (00:11)
[2025-01-27] MEDS: oxyCODONE 5 MG Tab PO PRN (03:12)
[2025-01-27 06:06] LABS: HEMATOCRIT 35.4 % (42.0-52.0); HEMOGLOBIN 12.2 g/dL (14.0-18.0); IMMATURE GRAN ABSOLUTE AUTO 0.03 K/uL (0.00-0.05); IMMATURE GRAN PERCENT AUTO 0.4 % (0.0-0.4); LYMPHOCYTES ABSOLUTE AUTO 0.54 K/uL (1.00-4.80); LYMPHOCYTES PERCENT AUTO 6.7 % (24.0-44.0); MEAN CORPUSCULAR HEMOGLOBIN 30.5 pg (28.0-32.0); MEAN CORPUSCULAR HGB CONC 34.5 g/dL (32.0-36.0); MEAN CORPUSCULAR VOLUME 88.5 fL (83.0-99.0); MEAN PLATELET VOLUME 8.6 fL (9.4-12.4); MONOCYTES ABSOLUTE AUTO 0.49 K/uL (0.00-0.80); MONOCYTES PERCENT AUTO 6.1 % (0.0-8.0); NEUTROPHILS ABSOLUTE AUTO 6.95 K/uL (1.80-7.70); NEUTROPHILS PERCENT AUTO 86.8 % (41.0-71.0); PLATELET COUNT,PLT 240 K/uL (150-400); WHITE BLOOD CELL COUNT,WBC 8.01 K/uL (3.9-11.3)
[2025-01-27 06:34] LABS: CALCIUM 8.2 mg/dL (8.5-10.1); CARBON DIOXIDE,CO2 23.8 mmol/L (21.0-32.0); CREATININE 0.8 mg/dL (0.8-1.3); EST CRCL DRUG DOSING (CG) 83.66 mL/min; PHOSPHORUS 3.9 mg/dL (2.6-4.7); POTASSIUM,K 4.4 mmol/L (3.5-5.1)
[2025-01-27] MEDS: Ondansetron 4 MG Tab.DIS PO PRN (08:14)
[2025-01-27] MEDS: Insulin Aspart 100 Units/ML 3 ML Pen SUBCUT SCH (12:26)
[2025-01-27] MEDS: Acetaminophen 325 MG Tab PO PRN (12:31)
[2025-01-28 06:06] LABS: BASOPHILS ABSOLUTE AUTO 0.06 K/uL (0.00-0.20); BASOPHILS PERCENT AUTO 0.8 % (0.0-1.0); EOSINOPHILS ABSOLUTE AUTO 0.36 K/uL (0.00-0.45); HEMATOCRIT 36.9 % (42.0-52.0); HEMOGLOBIN 12.3 g/dL (14.0-18.0); IMMATURE GRAN ABSOLUTE AUTO 0.01 K/uL (0.00-0.05); IMMATURE GRAN PERCENT AUTO 0.1 % (0.0-0.4); LYMPHOCYTES ABSOLUTE AUTO 2.33 K/uL (1.00-4.80); LYMPHOCYTES PERCENT AUTO 32.3 % (24.0-44.0); MEAN CORPUSCULAR HEMOGLOBIN 29.9 pg (28.0-32.0); MEAN CORPUSCULAR HGB CONC 33.3 g/dL (32.0-36.0); MEAN CORPUSCULAR VOLUME 89.8 fL (83.0-99.0); MEAN PLATELET VOLUME 8.7 fL (9.4-12.4); MONOCYTES ABSOLUTE AUTO 0.81 K/uL (0.00-0.80); MONOCYTES PERCENT AUTO 11.2 % (0.0-8.0); NEUTROPHILS ABSOLUTE AUTO 3.65 K/uL (1.80-7.70); NEUTROPHILS PERCENT AUTO 50.6 % (41.0-71.0); PLATELET COUNT,PLT 235 K/uL (150-400); RED BLOOD CELL COUNT 4.11 M/uL (4.52-5.90); WHITE BLOOD CELL COUNT,WBC 7.22 K/uL (3.9-11.3)
[2025-01-28 06:39] LABS: A/G RATIO 0.9 (0.9-1.6); ALBUMIN 3.1 g/dL (3.4-5.0); BILIRUBIN TOTAL 0.4 mg/dL (0.2-1.0); CALCIUM 8.4 mg/dL (8.5-10.1); CARBON DIOXIDE,CO2 28.9 mmol/L (21.0-32.0); EST CRCL DRUG DOSING (CG) 66.93 mL/min; MAGNESIUM 1.8 mg/dL (1.8-2.4); POTASSIUM,K 4.1 mmol/L (3.5-5.1); PROTEIN TOTAL,TP 6.4 g/dL (6.4-8.2)
[2025-01-28] MEDS: Docusate Sodium 100 MG Cap PO PRN (09:03)
[2025-01-28] MEDS: Polyethylene Glycol 3350 Powder 17 GM Packet PO PRN (09:30)
[2025-01-28] MEDS: Pantoprazole 40 MG Tab.CR PO SCH (11:23)
[2025-01-28] MEDS: Carboxymethylcellulose Sodium 0.5% Ophth Soln 0.4 ML UD Box of 30 EYEBOTH PRN (21:16)
[2025-01-28] MEDS: Melatonin 3 MG Tab PO PRN (21:17)
[2025-01-28] MEDS: Calcium Carbonate 500 MG Tab.Chew PO PRN (23:25)
[2025-01-29 06:13] LABS: BASOPHILS ABSOLUTE AUTO 0.03 K/uL (0.00-0.20); BASOPHILS PERCENT AUTO 0.5 % (0.0-1.0); EOSINOPHILS ABSOLUTE AUTO 0.37 K/uL (0.00-0.45); EOSINOPHILS PERCENT AUTO 6.5 % (0.0-6.0); HEMATOCRIT 38.7 % (42.0-52.0); HEMOGLOBIN 13.1 g/dL (14.0-18.0); IMMATURE GRAN ABSOLUTE AUTO 0.02 K/uL (0.00-0.05); IMMATURE GRAN PERCENT AUTO 0.3 % (0.0-0.4); LYMPHOCYTES ABSOLUTE AUTO 1.57 K/uL (1.00-4.80); LYMPHOCYTES PERCENT AUTO 27.4 % (24.0-44.0); MEAN CORPUSCULAR HEMOGLOBIN 30.3 pg (28.0-32.0); MEAN CORPUSCULAR HGB CONC 33.9 g/dL (32.0-36.0); MEAN CORPUSCULAR VOLUME 89.4 fL (83.0-99.0); MEAN PLATELET VOLUME 8.6 fL (9.4-12.4); MONOCYTES ABSOLUTE AUTO 0.74 K/uL (0.00-0.80); MONOCYTES PERCENT AUTO 12.9 % (0.0-8.0); NEUTROPHILS ABSOLUTE AUTO 2.99 K/uL (1.80-7.70); NEUTROPHILS PERCENT AUTO 52.4 % (41.0-71.0); PLATELET COUNT,PLT 258 K/uL (150-400); RED BLOOD CELL COUNT 4.33 M/uL (4.52-5.90); WHITE BLOOD CELL COUNT,WBC 5.72 K/uL (3.9-11.3)
[2025-01-29 06:41] LABS: A/G RATIO 0.9 (0.9-1.6); ALBUMIN 3.1 g/dL (3.4-5.0); BILIRUBIN TOTAL 0.5 mg/dL (0.2-1.0); CALCIUM 8.3 mg/dL (8.5-10.1); CARBON DIOXIDE,CO2 25.2 mmol/L (21.0-32.0); CREATININE 0.8 mg/dL (0.8-1.3); EST CRCL DRUG DOSING (CG) 83.66 mL/min; MAGNESIUM 1.5 mg/dL (1.8-2.4); PROTEIN TOTAL,TP 6.7 g/dL (6.4-8.2)
[2025-01-29] MEDS ORDERED: Magnesium Sulfate/Water 2 GM/50 ML Premix Bag IV ONE (09:51)
[2025-01-29] MEDS: Magnesium Sulfate 2 GM/50 mL 2 GM in Premix Bag 1 BAG IV ONE (10:08)
[2025-01-30 06:04] LABS: BASOPHILS ABSOLUTE AUTO 0.06 K/uL (0.00-0.20); BASOPHILS PERCENT AUTO 0.9 % (0.0-1.0); EOSINOPHILS ABSOLUTE AUTO 0.33 K/uL (0.00-0.45); HEMATOCRIT 37.4 % (42.0-52.0); HEMOGLOBIN 13.3 g/dL (14.0-18.0); IMMATURE GRAN ABSOLUTE AUTO 0.01 K/uL (0.00-0.05); IMMATURE GRAN PERCENT AUTO 0.2 % (0.0-0.4); LYMPHOCYTES PERCENT AUTO 28.7 % (24.0-44.0); MEAN CORPUSCULAR HEMOGLOBIN 30.9 pg (28.0-32.0); MEAN CORPUSCULAR HGB CONC 35.6 g/dL (32.0-36.0); MEAN CORPUSCULAR VOLUME 86.8 fL (83.0-99.0); MEAN PLATELET VOLUME 8.3 fL (9.4-12.4); MONOCYTES ABSOLUTE AUTO 0.84 K/uL (0.00-0.80); MONOCYTES PERCENT AUTO 12.7 % (0.0-8.0); NEUTROPHILS ABSOLUTE AUTO 3.48 K/uL (1.80-7.70); NEUTROPHILS PERCENT AUTO 52.5 % (41.0-71.0); PLATELET COUNT,PLT 275 K/uL (150-400); RED BLOOD CELL COUNT 4.31 M/uL (4.52-5.90); WHITE BLOOD CELL COUNT,WBC 6.62 K/uL (3.9-11.3)
[2025-01-30 06:24] LABS: CALCIUM 8.5 mg/dL (8.5-10.1); CARBON DIOXIDE,CO2 26.4 mmol/L (21.0-32.0); EST CRCL DRUG DOSING (CG) 66.93 mL/min; MAGNESIUM 1.9 mg/dL (1.8-2.4); POTASSIUM,K 4.3 mmol/L (3.5-5.1)
[2025-01-31 10:48] VITALS: BP 131/76; PULSE 83
== END 2025-01-31 10:00 | disposition swing bed (61) | DRG 482 ==
LOC: MW.ED 15:33 → MW.MS 18:01
PROVIDERS: ADMIT Internal Medicine; ATTEND Internal Medicine
PROC: 0QH734Z Insertion of Internal Fixation Device into Left Upper Femur, Percutaneous Approach (ICD-10-PCS; principal; 2025-01-26 15:30)
DX: S72.002A Fracture of unspecified part of neck of left femur, initial encounter for closed fracture (principal); Z75.3 Unavailability and inaccessibility of health-care facilities; E11.9 Type 2 diabetes mellitus without complications; N40.0 Benign prostatic hyperplasia without lower urinary tract symptoms; S50.311A Abrasion of right elbow, initial encounter; W10.9XXA Fall (on) (from) unspecified stairs and steps, initial encounter; M16.12 Unilateral primary osteoarthritis, left hip; H91.90 Unspecified hearing loss, unspecified ear; R07.9 Chest pain, unspecified; K59.00 Constipation, unspecified; Z79.899 Other long term (current) drug therapy; Z87.442 Personal history of urinary calculi; Y93.89 Activity, other specified; Y92.009 Unspecified place in unspecified non-institutional (private) residence as the place of occurrence of the external cause
CPT/HCPCS: 36415; 64447; 73502-26-LT; 73502-LT; 73700-26-LT; 73700-LT; 76000; 76000-26; 80048; 80053; 82947; 83735; 84100; 84484; 85025; 93005; 97110-GP; 97116-GP; 97161-GP; 99284; 99285; A9270-GY; J0665; J0690; J1100; J1650; J1815-GY; J1885; J2003; J2270; J2371; J2405; J2704; J3010; J3475; J3490; J7030